=== PATIENT | male | born 1995 | race African-American/Black ===

== ENCOUNTER 2018-03-08 15:03 | Emergency (ER) | payer OTHER ==
[~2018-03-08] VITALS: Ht 180.3 cm; Wt 79.4 kg
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
[2018-03-08 16:27] LABS: ABSOLUTE BASOPHIL COUNT 0 /CUMM (0.0-0.2); ABSOLUTE EOSINOPHIL COUNT 0 /CUMM (0.0-0.7); ABSOLUTE GRANULOCYTE CT 5.9 /CUMM (1.4-6.5); ABSOLUTE LYMPH COUNT 1.1 /CUMM (1.2-3.4); ABSOLUTE MONOCYTE COUNT 0.4 /CUMM (0.10-0.60); BASOPHIL % 0.2 % (0.0-2.0); EOSINOPHIL % 0.1 % (0-5); GRANULOCYTE % 80.1 % (42.2-75.2); HEMATOCRIT 41.6 % (42-52); MEAN CORPUSCULAR HGB 27.7 PG (27.0-31.0); MEAN CORPUSCULAR HGB CONC 32.6 G/DL (33.0-37.0); MEAN CORPUSCULAR VOLUME 84.9 FL (80.0-94.0); MEAN PLATELET VOLUME 7.2 FL (7.4-10.4); PLATELET COUNT 388 /CUMM (130-400); WHITE BLOOD CELL COUNT 7.4 /CUMM (4.8-10.8)
[2018-03-08] MEDS ORDERED: FLUOXETINE HCL10 M2 PO (16:30)
[2018-03-08] MEDS ORDERED: ZYPREXA2.5 M1 PO (16:30)
[2018-03-08 20:24] VITALS: BP 132/85
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
== END 2018-03-08 20:40 ==
LOC: ERH 15:03
PROVIDERS: Physician Assistant Medical
DX: F20.9 Schizophrenia, unspecified (principal)
CPT/HCPCS: 80307; G0463; G0480